=== PATIENT | female | born 1995 | race Caucasian/White ===

== ENCOUNTER 2018-10-18 03:30 | Outpatient (CLI) | payer OTHER ==
[~2018-10-18] VITALS: Ht 160 cm; Wt 71.0 kg
[2018-10-18 04:09] VITALS: BP 111/61; PULSE 77; RESP 18
[2018-10-18] MEDS ORDERED: PREN-19 PO (04:14)
[2018-10-18] MEDS ORDERED: AL HYDROX/MG HYDROX/SIMETH 30 ML CUP PO ONE (04:30)
--- NOTE | 2018-10-18 07:06 | TRIAGE ---
OB Triage Datetime Report Generated by CPN: 10/18/2018 07:05 Datetime: 10/18/2018 04:49 FHR Baseline Changes: No Baseline Change Variability: Moderate 6-25 bpm Accelerations: 15X15 Decelerations: None Category: Category I Datetime: 10/18/2018 04:17 Time of Arrival: 10/18/2018 03:32 EGA: 30.3 Arrived By: Wheelchair Arrived From: Home Chief Complaint: c/o shaking and numbness in whole body, epigastric pain and lower abd crampin s Movement: Present Contractions: Irregular Rupture of Membranes: Denies Vaginal Bleeding: None Vaginal Discharge: Denies Recent Sexual Intercouse: Denies Abdominal Trauma: Not Applicable Patient Complaints: Cramping; Nausea; Epigastric Pain Time Provider Notified: 10/18/2018 04:15 Provider Notified: Dr Longoria Initial Plan: EFM,UA,CBC,CMP,AMYLASE,LIPASE,URIC ACID,CVL,BPP,EFW,ABD U/S Datetime: 10/18/2018 04:15 Stage of : OB Triage Labor Evaluation Monitor Mode: External Quality: Mild Pattern: Normal: <= 5 Contractions in 10 Minutes Resting Tone [place]: Relaxed Heart Rate FHR Baseline Rate: 140 Monitor Mode: External US FHR Baseline Changes: No Baseline Change Variability: Moderate 6-25 bpm Accelerations: 15X15 Decelerations: None Category: Category I Datetime: 10/18/2018 03:53 Stage of : OB Triage Maternal Assessment Level of Consciousness: Fully Conscious Headache: Denies Blurred Vision: No Respiratory Effort: Unlabored Nausea/Vomiting: Present RUQ Epigastric Pain: Present Facial Edema: None Labor Evaluation Monitor Mode: External Resting Tone [place]: Relaxed Monitor Mode: External US Comments: FHT 140 Pain Assessment Pain Scale: 8 Pain Presence: Intermittent Pain Type: Cramping; Pressure Pain Location: Abdomen
--- NOTE | 2018-10-18 07:13 | PN ---
Triage Information Date/Time October 18, 2018 Reason for visit: Abd/pelvic pain Weeks of Gestation 30w 3d /Para 2/0 Diabetes: none Hypertention: none Additional information Pt woke up with epigastric pain and lower abdominal pressure, shaking and numbness and nausea. PMHx: none. PSHx: none. NKDA. Objective Vital Signs Date Temp Pulse Resp B/P (MAP) Pulse Ox O2 O2 Flow FiO2 Time Delivery Rate 10/18/18 98.4 77 18 111/61 Room Air 04:09 (78) Heart Rate: 130's Heart Rate Comments Accels to 160 bpm. No decels. Contractions: None Results/Medications Result Diagram: 10/18/1844210/18/18442 Results 24 hrs Laboratory Tests Test 10/18/18 03:45 10/18/18 04:43 Urine Color COLORLESS Urine Clarity CLEAR Urine pH 7.0 Urine Specific [place] 1.001 L Urine Ketones NEGATIVE Urine Nitrite NEGATIVE Urine Bilirubin NEGATIVE Urine Urobilinogen NEGATIVE Urine Leukocyte Esterase NEGATIVE Urine Hemoglobin NEGATIVE Urine Glucose NEGATIVE Urine Total Protein NEGATIVE White Blood Count 12.2 H Red Blood Count 4.01 L Hemoglobin 12.1 Hematocrit 37.0 Mean Corpuscular Volume 92.3 Mean Corpuscular Hemoglobin 30.2 Mean Corpuscular Hemoglobin Concent 32.7 Red Cell Distribution Width 13.2 Platelet Count 244 Mean Platelet Volume 11.0 H Immature Granulocytes % 1.800 H Neutrophils % 63.9 Lymphocytes % 20.6 Monocytes % 11.7 H Eosinophils % 1.3 Basophils % 0.7 Nucleated Red Blood Cells % 0.0 Immature Granulocytes # 0.220 H Neutrophils # 7.8 H Lymphocytes # 2.5 Monocytes # 1.4 H Eosinophils # 0.2 Basophils # 0.1 Nucleated Red Blood Cells # 0.0 Prothrombin Time 12.4 Prothrombin Time Ratio 1.0 INR International Normalized Ratio 0.91 Activated Partial Thromboplast Time 27.3 Sodium Level 139 Potassium Level 4.2 Chloride Level 108 Carbon Dioxide Level 23 Anion Gap 8 Blood Urea Nitrogen 8 Creatinine 0.51 Est Glomerular Filtrat Rate mL/min > 60 Glucose Level 89 Uric Acid 4.6 Calcium Level 9.2 Total Bilirubin 0.2 Direct Bilirubin 0.00 Indirect Bilirubin 0.2 Aspartate Amino Transf (AST/SGOT) 17 Alanine Aminotransferase (ALT/SGPT) 11 L Alkaline Phosphatase 101 Total Protein 6.9 Albumin 3.7 Globulin 3.20 Albumin/Globulin Ratio 1.15 Amylase Level 83 Lipase 72 Imaging Results EFW 1956 grams. BPP 8/8. CASSANDRA 9.1. VTX. CX 3.6 cm and closed. Gallbladder appears normal. Disposition: Discharge Assessment/Plan A: IUP at 30w 3d. Epigastric pain of unclear etiology but completely resolved at discharge. P:Pt slept and the pain went away so was d/c'ed w/o an issue. She also was aski reta about constipation and was told to ask her clinic what they would prefer for her to take. AMARA ROSADO MD Oct 18, 2018 07:12
== END 2018-10-18 06:56 | disposition home or self-care (01) ==
LOC: L-D 03:30 → OBT 03:30
PROVIDERS: ATTEND Obstetrics & Gynecology
DX: O26.893 Other specified pregnancy related conditions, third trimester (principal); Z3A.30 30 weeks gestation of pregnancy; R10.2 Pelvic and perineal pain
CPT/HCPCS: 76705; 76815; 76817; 76818; 80053; 81003; 82150; 83690; 84560; 85025; 85610; 85730; Z7500; G0463